=== PATIENT | female | born 1950 | race Caucasian/White ===

== ENCOUNTER 2024-05-19 01:58 | Emergency (ER) | payer MEDICARE, SELFPAY ==
[2024-05-19 01:58] VITALS: BMI 26.2
[2024-05-19 02:05] VITALS: BP 159/79
[2024-05-19 03:44] VITALS: BP 142/78
[2024-05-19 04:00] VITALS: BP 152/76
[2024-05-19 04:38] LABS: % Basophils 0.9 % (0-2); % Eosinophils 2.4 % (0-6); % Immature Granulocytes 0.3 % (0-0.5); % Monocytes 10.7 % (1.7-9.3); % Neutrophils 58.7 % (42.2-75.2); Absolute Basophils 0.1 10^3/uL (0-0.2); Absolute Eosinophils 0.3 10^3/uL (0-0.7); Absolute Lymphocytes 2.8 10^3/uL (1.2-3.4); Absolute Monocytes 1.1 10^3/uL (0.1-0.6); Absolute Neutrophils 6.1 10^3/uL (1.4-6.5); Hematocrit 37.2 % (37.0-47.0); Hemoglobin 13.1 g/dL (12.0-16.0); Mean Corp Hgb Conc. 35.2 g/dL (33.0-37.0); Mean Platelet Volume 9.5 fL (7.4-10.4); Nucleated Red Blood Cells % 0 %; Platelet Count 217 10^3/uL (130-400); Red Blood Cell Count 4.09 10^6/uL (4.20-5.40); Red Cell Dist. Width 12.6 % (11.5-14.5); White Blood Cell Count 10.4 10^3/uL (4.8-10.8)
[2024-05-19 04:49] LABS: ALT (SGPT) 24 U/L (0-35); AST (SGOT) 28 U/L (14-36); Albumin 4.3 g/dl (3.5-5.0); Alkaline Phosphatase 90 U/L (38-126); Blood Urea Nitrogen 14 mg/dl (7-17); Calcium 9.9 mg/dl (8.4-10.2); Carbon Dioxide 25 mmol/L (22-30); Chloride 102 mmol/L (98-107); Estimated Creatinine Clearance 64 ml/min; Glucose 118 mg/dl (70-99); Potassium 3.9 mmol/L (3.5-5.1); Sodium 137 mmol/L (135-145); Total Bilirubin 0.6 mg/dl (0.2-1.3); Total Protein 7.4 g/dl (6.3-8.2); eGFR > 60.00
[2024-05-19 04:52] LABS: Troponin I < 0.012 ng/ml
[2024-05-19 05:00] VITALS: BP 142/61
[2024-05-19 06:00] VITALS: BP 147/69
--- NOTE | 2024-05-19 06:04 | ED.GENMED ---
History of Present Illness
General
Chief Complaint: Chest Pain
Time Seen by Provider: 05/19/24 06:04
History of Present Illness
History of Present Illness:
TIME OF INITIAL ENCOUNTER: 6:05 AM
HPI: Patient presents due to chest discomfort. This been ongoing intermittently for the past 5 days or so. There was no exertional symptoms. Last night she had an increased amount of upper back pain and was concerned because she broke out into a
sweat at rest. She thought it was muscular in nature and tried ibuprofen with some improvement. She saw [facility] many years ago. She has no known coronary disease.
EXAM:
GENERAL: Well appearing in no distress
HEENT: Moist oral mucosa
CARDIOVASCULAR: No murmurs, normal heart rate, regular rhythm, No chest wall tenderness
PULMONARY: No respiratory distress, breath sounds are clear and equal
ABDOMEN: Soft with no peritoneal signs, no tenderness
NEUROLOGIC: Excellent strength all extremities, no coordination deficits
PSYCHIATRIC: Appropriate mental status, normal insight and judgement
EXTREMITIES: Nontender, no edema, moves all extremities equally
SKIN: No rash, no lesions
BACK: As I palpate the upper back she indicates that 'it feels better when you push on my back'
NUMBER AND COMPLEXITY OF PROBLEMS ADDRESSED AT THE ENCOUNTER
� Chronic conditions affecting care: High blood pressure
� Acute Exacerbation and/or Progression of Chronic Illness: This is an acute problem
� Differential Diagnosis includes: Musculoskeletal pain, thoracic muscle strain, highly doubt pneumonia, highly doubt ACS
AMOUNT AND/OR COMPLEXITY OF DATA TO BE REVIEWED AND ANALYZED
� I performed an independent evaluation of and my interpretation is:
EKG: Sinus 80, nonspecific ST abnormality
CT:
X-rays: Chest x-ray shows no acute abnormality
Laboratory Studies: White count and hemoglobin are normal, chemistries unremarkable, initial troponin 0.012
Other:
� Review of other/old records: I reviewed records, the patient was seen here in the emerged part with chest pain in 2019
� Clinical information was obtained by an independent historian: I spoke to at
� Prescriptions/Medications Considered but not given:
� Further testing considered but not performed:
RISK OF COMPLICATIONS AND/OR MORBIDITY OR MORTALITY OF PATIENT MANAGEMENT
� Social determinants of health affecting care:
� Discussion with other providers:
� Escalation of care including admission/observation vs risk of discharge considered:
ANY OTHER UPDATES:
7:55 AM: I reassessed patient. EKG, chest x-ray, troponin all unremarkable. We did give a dose of Toradol. She feels markedly improved after Toradol was given. Her range of motion in her back is much improved. However given her age with history
of high blood pressure, I still would like her to follow-up with cardiology as well. Of note, she does have knee surgery, this week and I did suggest that she follows up with cardiology for their evaluation first.
Past History
Past History
ED Past Medical History: HTN
Social History
Tobacco: Non-smoker
Alcohol: Occasional
Drug: None
Personal:
Living: with family
Phy Exam
Physical Exam
Physical Exam:
See HPI
Scores
Heart Score for Chest Pain Patients
STEMI patient?: Not applicable
Course
Orders/Labs/Results
Orders:
Orders
05/19/24 01:59
Electrocardiogram (*1) Urgent
Reason for Study: Chest Pain
Other Reason for Exam: BACK PAIN
05/19/24 02:00
EKG- Treatment ONCE
05/19/24 04:12
CMP [Comprehensive Metabolic Panel] Urgent
Complete Blood Count/With Diff Urgent
Troponin I Urgent
05/19/24 06:05
Electrocardiogram (*1) Urgent
Reason for Study: Chest Pain
EKG- Treatment ONCE
05/19/24 06:15
CR Chest - 2 Views Urgent
Comment:
Reason For Exam: cp upper back pain
05/19/24 06:24
Ketorolac [Toradol] 15 mg IV NOW STA
Abnormal Lab Results
05/19/24
04:12
RBC 4.09 L 10^6/uL
(4.20-5.40)
MCH 32.0 H pg
(27.0-31.0)
Absolute Monos (auto) 1.1 H 10^3/uL
(0.1-0.6)
Monocytes % 10.7 H %
(1.7-9.3)
Glucose 118 H mg/dl
(70-99)
05/19/24 04:12
05/19/24 04:12
Vital Signs
Initial and Last Documented VS:
Initial Vital Signs
Temp Pulse Resp BP Pulse Ox
36.6 C 79 20 159/79 97
05/19/24 02:05 05/19/24 02:05 05/19/24 02:05 05/19/24 02:05 05/19/24 02:05
Last Documented Vital Signs
Temp Pulse Resp BP Pulse Ox
36.8 C 78 15 140/76 97
05/19/24 04:00 05/19/24 07:00 05/19/24 07:00 05/19/24 07:00 05/19/24 06:15
*Critical Care Note
Total Time (30-74mins, 75-104mins- exclusive of procedures): Not Applicable
ED Attending Note
-
Portions of this chart may have been created with voice recognition software.� Occasional wrong word or��sound alike� substitutions may have occurred due to the inherent limitations of voice recognition software.
Discharge Plan
Departure
Patient Disposition: Home (Routine Discharge)
Date of Disposition: 05/19/24
Time of Disposition: 08:02
Patient with high blood pressure during this ER visit?: Yes
Discharge Problem:
Chest pain
Instructions: Chest Pain [facility] Follow Up, BLOOD PRESSURE
Referrals:
Bozena Rudd DO [Family Provider] -
Derik Mary MD [Active] - Next open appointment
Activity Restrictions/Additional Instructions:
The cause of your symptoms is unclear but could be musculoskeletal in nature. Cardiac blood work and EKG are normal. I do not see any clear abnormality on the chest x-ray. I would still like you to follow-up with [facility] for further
evaluation.
Interventions
Interventions:
*Risk Screen - Suicide Last Done: 05/19/24 03:45
*General Assessment Last Done: 05/19/24 03:44
*Neglect/Abuse Screening Last Done: 05/19/24 03:44
*ED- Fall Risk Assessment Last Done: 05/19/24 03:45
*ED COVID-19 Vaccine History Last Done: 05/19/24 03:45
ED- Cardiac Assessment Last Done: 05/19/24 03:42
Discharge Date and Time
Print Language: FRENCH
[2024-05-19] MEDS: TORADOL 15 MG IV (06:36)
[2024-05-19 07:00] VITALS: BP 140/76
== END 2024-05-19 08:12 | disposition home or self-care (01) ==
LOC: EMR 01:58
PROVIDERS: Emergency Medicine; EMERGENCY PHYSICIAN Emergency Medicine; FAMILY PHYSICIAN Family Medicine
DX: R07.89 Other chest pain (principal); I10 Essential (primary) hypertension
CPT/HCPCS: 99285; 96374; 71046; 80053; 84484; 85025; 93005

== ENCOUNTER → 2024-05-24 14:50 | Outpatient (REF) | payer MEDICARE, SELFPAY | LOC: HWRCS 14:50 | PROVIDERS: ATTENDING PHYSICIAN Internal Medicine Cardiovascular Disease; FAMILY PHYSICIAN Family Medicine | DX: R07.89 Other chest pain (principal) | CPT/HCPCS: 93306 ==

== ENCOUNTER → 2024-05-27 08:12 | Outpatient (REF) | payer MEDICARE, SELFPAY | LOC: HWRCS 08:12 | PROVIDERS: ATTENDING PHYSICIAN Internal Medicine Cardiovascular Disease; FAMILY PHYSICIAN Family Medicine | DX: R07.89 Other chest pain (principal) | CPT/HCPCS: 78452; 93017; A9500; J2785 ==